=== PATIENT | female | born 1970 | race Caucasian/White ===

== ENCOUNTER → 2016-12-31 | Outpatient (CLI) | payer BC ==
--- NOTE | 2017-01-01 12:05 | MM ---
Reason for exam: screening (asymptomatic). Last mammogram was performed 2 years and 3 months ago. History: Patient is postmenopausal. Taking estrogen for 5 years beginning at age 38. Physical Findings: A clinical breast exam by your physician is recommended on an annual basis and results should be correlated with mammographic findings. MG Screening Mammo w CAD Bilateral CC and MLO view(s) were taken. Prior study comparison: October 10, 2014, bilateral MG screening mammo w CAD. The breast tissue is heterogeneously dense. This may lower the sensitivity of mammography. Finding: There is a 6 mm equal density (isodense), lobulated mass located 8 cm from the nipple in the upper quadrant, posterior position of the left breast. New finding since October 10, 2014. ASSESSMENT: Incomplete: need additional imaging evaluation, BI-RAD 0 RECOMMENDATION: Special view mammogram of the left breast. If lesion persists on supplemental views, image directed ultrasound is recommended. [facility] will attempt to contact patient to return for supplemental views and ultrasound if indicated.
== END | disposition home or self-care (01) ==
LOC: RADMAMWWP 09:43
PROVIDERS: ATTEND Internal Medicine
DX: Z12.31 Encounter for screening mammogram for malignant neoplasm of breast (principal)

== ENCOUNTER → 2017-01-05 | Outpatient (CLI) | payer BC ==
--- NOTE | 2017-01-05 08:27 | MM ---
Reason for exam: additional evaluation requested from abnormal screening. Last mammogram was performed less than 1 month ago. History: Patient is postmenopausal. Took estrogen beginning at age 38. Physical Findings: Nurse did not find any significant physical abnormalities on exam. MG 3D Work Up W/Cad LT Spot compression CC, spot compression MLO, and ML view(s) were taken of the left breast. Prior study comparison: December 31, 2016, bilateral MG screening mammo w CAD. October 10, 2014, bilateral MG screening mammo w CAD. A 5mm lesion does not completely go away on additional views. These results were verbally communicated with the patient and result sheet given to the patient on 01/05/17. ASSESSMENT: Incomplete: need additional imaging evaluation, BI-RAD 0 RECOMMENDATION: Ultrasound of the left breast.
--- NOTE | 2017-01-05 08:28 | USB ---
Reason for exam: additional evaluation requested from abnormal screening. History: Patient is postmenopausal. Took estrogen beginning at age 38. US Breast Workup Limited LT Left breast ultrasound demonstrates no cystic or solid lesion seen. These results were verbally communicated with the patient and result sheet given to the patient on 01/05/17. ASSESSMENT: Probably benign, BI-RAD 3 RECOMMENDATION: Follow-up diagnostic mammogram of the left breast in 6 months.
== END ==
LOC: RADMAMWWP 07:06
PROVIDERS: ATTEND Internal Medicine
DX: R92.8 Other abnormal and inconclusive findings on diagnostic imaging of breast (principal)
CPT/HCPCS: 76642; G0206; G0279

== ENCOUNTER → 2017-01-19 | Outpatient (CLI) | payer BC ==
--- NOTE | 2017-01-19 11:33 | WWHP ---
[facility] - HISTORY AND PHYSICAL DATE OF SERVICE: 01/19/2017 CHIEF COMPLAINT: The patient is here for her routine gynecologic exam. HPI: This is a 46-year-old G2, P0-1-1-1 with an LMP of 2009. She is status post CARIE/BSO for benign reasons. The patient does have occasional hot flashes, but they are not very bothersome and she is no longer on ERT. She is without gynecologic complaints. PAST MEDICAL HISTORY: Rheumatoid arthritis and anxiety. MEDICATIONS: Lexapro 10 mg daily, calcium with vitamin D, which she takes about 2 times per week. ALLERGIES: No known drug allergies. PAST SURGICAL HISTORY: in 1998, laparoscopy with adhesiolysis in 1997, CARIE BSO with removal of hemorrhagic subcutaneous nodule was done in 2009. 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 She has no history of STDs. SOCIAL HISTORY: She quit smoking in 2012 and has about 2 alcohol containing drinks per month. She denies drug use. 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 FAMILY HISTORY: Both parents had a CVA. Father also had type 2 diabetes. Mother also has bipolar disorder. Grandfather had lung cancer and a grandmother had pancreatic cancer. REVIEW OF SYSTEMS: She has gained about 3 pounds over the last year. She denies respiratory or cardiac problems. GI: Occasional heartburn. PHYSICAL EXAM: Blood pressure 127/88, height 5 feet 5 inches, weight 181 pounds, BMI 30. Temperature 98.1, pulse 78. This is a well-developed, heavyset white female, who is alert and oriented x3, in no acute distress. HEENT is within normal limits. NECK: Supple without mass or thyromegaly. CHEST AND LUNGS: Clear to auscultation. HEART: Regular rate and rhythm. Breasts are without mass or discharge. Axillary exam is negative for adenopathy. BACK: Negative for CVA tenderness. ABDOMEN: Soft, nontender, without palpable masses. PELVIC EXAM: External genitalia reveals mild atrophy without lesions. Vagina reveals mild atrophy without lesions. There is no evidence of prolapse. Bimanual exam is negative for mass or tenderness. Rectovaginal exam is negative for mass or tenderness and is negative for occult blood. EXTREMITIES: Nontender. IMPRESSION: 1. A 46-year-old menopausal female status post CARIE/BSO for benign reasons. 2. Normal gynecologic exam. PLAN: 1. Pap smears have been discontinued. 2. Self-breast examination was discussed. 3. She had a recent mammogram earlier this year and this was felt to be probably benign, but repeat left diagnostic mammogram was recommended in 6 months and an order slip was given to the patient for this. 4. Osteoporosis prevention was discussed. 5. Weight control was also discussed. We have discussed the importance of good nutrition, regular exercise, regular meals, and limited carbohydrates and limited fat in the diet. I have also suggested that she consider Weight Watchers if she needs a more structured program for this. 6. She will return in 1 year. MMSIMON / PABLO: [id number] /
== END | disposition home or self-care (01) ==
LOC: WWCWWP 09:18
PROVIDERS: ATTEND Obstetrics & Gynecology
DX: Z01.419 Encounter for gynecological examination (general) (routine) without abnormal findings (principal)

== ENCOUNTER → 2018-01-12 | Outpatient (CLI) | payer BC ==
[2018-01-12 07:37] LABS: Basophils % (A) 1 %; Eosinophils # (A) 0.1 k/uL (0-0.7); Eosinophils % (A) 3 %; HGB 14.8 gm/dL (11.4-16.0); Lymphocytes # (A) 1.5 k/uL (1.0-4.8); Lymphocytes % (A) 32 %; MCH 31.5 pg (25.0-35.0); MCHC 35.3 g/dL (31.0-37.0); MCV 89.1 fL (80.0-100.0); Mean Platelet Volume 6.8; Monocytes # (A) 0.2 k/uL (0-1.0); Monocytes % (A) 4 %; Neutrophils # (A) 2.8 k/uL (1.3-7.7); Neutrophils % (A) 59 %; Platelet Count 241 k/uL (150-450); RBC 4.71 m/uL (3.80-5.40); RDW 12.9 % (11.5-15.5); WBC 4.7 k/uL (3.8-10.6)
[2018-01-12 08:13] LABS: Appearance,Urine Clear (Clear); Bacteria,Urine Rare /hpf; Bilirubin,Urine Negative (Negative); Blood,Urine Negative (Negative); Color,Urine Yellow; Glucose,Urine (UA) Negative (Negative); Ketones,Urine Negative (Negative); Leukocyte Esterase,Urine Moderate (Negative); Mucus,Urine Rare /hpf; Nitrite,Urine Negative (Negative); Protein,Urine Negative (Negative); Specific Gravity,Urine 1.018 (1.001-1.035); Squamous Epithelial Cell,Urine 2 /hpf (0-4); Urobilinogen,Urine <2.0 mg/dL (<2.0); WBC,Urine 4 /hpf (0-5)
[2018-01-12 13:00] LABS: Albumin 4.5 g/dL (3.80-4.90); Albumin/Globulin Ratio 2.25 (1.20-2.10); Anion Gap 11.1 mmol/L (4.00-12.00); Calcium 9.3 mg/dL (8.7-10.3); Carbon Dioxide 23.9 mmol/L (21.6-31.8); LDL Cholesterol,Calculated 102.6 mg/dL (0.0-131.0); Potassium 3.9 mmol/L (3.5-5.5); Total Bilirubin 0.6 mg/dL (0.3-1.2); Total Protein 6.5 g/dL (6.2-8.2); Uric Acid 5.4 mg/dL (2.9-7.7); VLDL Calculation 15.4 mg/dL (5.00-40.00)
[2018-01-12 13:08] LABS: T4, Free (Free Thyroxine) 1.2 ng/dL (0.80-1.80)
[2018-01-12 16:18] LABS: Hemoglobin A1C 4.9 % (4.0-6.0)
== END | disposition home or self-care (01) ==
LOC: LABWHC1 07:03
PROVIDERS: ATTEND Internal Medicine
DX: Z00.00 Encounter for general adult medical examination without abnormal findings (principal); F41.9 Anxiety disorder, unspecified; I10 Essential (primary) hypertension; M79.7 Fibromyalgia
CPT/HCPCS: 36415; 80053; 80061; 81001; 82306; 82550; 83036; 83735; 84439; 84443; 84550; 85025

== ENCOUNTER → 2018-03-01 | Outpatient (CLI) | payer BC ==
[2018-03-01 08:05] VITALS: BP 153/97; PULSE 76; RESP 18; TEMP 98.5; BMI 32.2
--- NOTE | 2018-03-01 08:38 | P.HPOB ---
History of Present Illness H&P Date: 03/01/18 Chief Complaint: The patient is here for her routine gynecologic exam and mammogram. This is a 47-year-old with an LMP of 2009. The patient is status post CARIE BSO for benign reasons. The patient is without gynecologic complaints. Review of Systems The patient has gained 9 pounds over the last year. She denies respiratory, cardiac, or G.I. problems. 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 She is status post CARIE BSO for benign reasons. History of Any Multi-Drug Resistant Organisms: None Reported Past Surgical History: Section (1998), Hysterectomy (CARIE BSO 2009) Additional Past Surgical History / Comment(s): Laparoscopy with adhesive lysis 1997. Removal of hemorrhagic subcutaneous nodule at the time of her hysterectomy in 2009. 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 - Past Family History Father Family Medical History: CVA/TIA, Diabetes Mellitus Additional Family Medical History / Comment(s): Grandfather had lung cancer and a grandmother had pancreatic cancer. Mother Family Medical History: CVA/TIA Additional Family Medical History / Comment(s): Bipolar disorder. Medications and Allergies Home Medications Medication Instructions Recorded Confirmed Type Escitalopram [Lexapro] 10 mg PO DAILY 03/01/18 03/01/18 History Allergies Allergy/AdvReac Type Severity Reaction Status Date / Time No Known Allergies Allergy Verified 03/01/18 08:29 Exam Vital Signs Temp Pulse Resp BP 03/01/18 07:54 98.5 F 76 18 153/97 Intake and Output 02/28/18 03/01/18 03/01/18 22:59 06:59 14:59 Other: Weight 85.275 kg Height 5'4", weight 188 pounds, BMI 32.3. This is a well-developed well-nourished white female who is alert and oriented times 3 in no acute distress. HEENT: Within normal limits. NECK: Supple without mass or thyromegaly. CHEST AND LUNGS: Clear to auscultation. HEART: Regular rate and rhythm. BREASTS: Are without mass or discharge. AXILLARY EXAM: Negative for adenopathy. BACK: Negative for CVA tenderness. ABDOMEN: Soft, nontender, without palpable masses. PELVIC EXAM: External genitalia appears normal. Vagina appears normal with minimal atrophy. There is no evidence of prolapse. Bimanual examination is negative for mass or tenderness. RECTAL EXAM: Rectovaginal exam is negative for mass or tenderness and is negative for occult blood. EXTREMITIES: Nontender. IMPRESSION: 1. 47-year-old menopausal female who is status post CARIE BSO done for benign reasons with normal gynecologic exam. 2. Elevated blood pressure. PLAN: 1. Pap smears have been discontinued. 2. Self breast awareness was discussed with the patient. 3. Screening mammogram will be done today. 4. Osteoporosis prevention was discussed. I have stressed the importance of adequate calcium, vitamin D and regular exercise. Recommended amounts of calcium and vitamin D were also discussed. 5. A message was left on the patient's voicemail regarding her elevated blood pressure in the office today. I have asked her to check your blood pressure on a regular basis and follow-up with Dr. Morgan for blood pressure elevations. 6. She will return in one year.
--- NOTE | 2018-03-06 12:23 | MM ---
Reason for exam: screening (asymptomatic). Last mammogram was performed 1 year and 2 months ago. History: Patient is postmenopausal. Took estrogen beginning at age 38. MG 3D Screening Mammo W/Cad Bilateral CC and MLO view(s) were taken. Prior study comparison: January 05, 2017, left breast MG 3d work up w/cad LT. December 31, 2016, bilateral MG screening mammo w CAD. The breast tissue is heterogeneously dense. This may lower the sensitivity of mammography. No discrete abnormality. ASSESSMENT: Negative, BI-RAD 1 RECOMMENDATION: Routine screening mammogram of both breasts in 1 year.
== END | disposition home or self-care (01) ==
LOC: WWCWWP 07:50
PROVIDERS: ATTEND Obstetrics & Gynecology
DX: Z12.31 Encounter for screening mammogram for malignant neoplasm of breast (principal)
CPT/HCPCS: 77063; 77067

== ENCOUNTER → 2020-08-22 | Outpatient (CLI) | payer BC ==
--- NOTE | 2020-08-22 16:56 | XR ---
EXAMINATION TYPE: XR ankle complete RT DATE OF EXAM: 08/22/2020 COMPARISON: NONE HISTORY: 49-year-old female M2 5.571 TECHNIQUE: 3 views FINDINGS: Ankle mortise is congruent with preservation of the distal tibiofibular overlap. Talar dome is intact . No acute fracture, subluxation, or dislocation. Mild soft tissue swelling. IMPRESSION: Mild soft tissue swelling. No acute osseous abnormality seen.
== END | disposition home or self-care (01) ==
LOC: RADXRMAIN 15:40
PROVIDERS: ATTEND Internal Medicine
DX: M79.89 Other specified soft tissue disorders (principal)

== ENCOUNTER → 2020-08-22 | Outpatient (CLI) | payer BC ==
--- NOTE | 2020-08-23 10:07 | MM ---
Reason for exam: clinical finding. Last mammogram was performed 2 years and 6 months ago. History: Patient is postmenopausal. Took estrogen beginning at age 38. Physical Findings: Nurse did not find any significant physical abnormalities on exam. MG 3D Diag Mammo W/Cad RAJWINDER Bilateral CC and MLO view(s) were taken. Prior study comparison: March 01, 2018, bilateral MG 3d screening mammo w/cad. January 05, 2017, left breast MG 3d work up w/cad LT. The breast tissue is heterogeneously dense. This may lower the sensitivity of mammography. No significant new findings when compared with previous films. These results were verbally communicated with the patient and result sheet given to the patient on 08/22/20. ASSESSMENT: Incomplete: need additional imaging evaluation, BI-RAD 0 RECOMMENDATION: Ultrasound of the left breast. (axillary lump)
--- NOTE | 2020-08-23 10:08 | USB ---
Reason for exam: additional evaluation requested from abnormal screening. History: Patient is postmenopausal. Took estrogen beginning at age 38. US Breast Axilla LT Left limited breast ultrasound including focal area of concern, retroareolar and axilla demonstrates no sonographic finding at palpable lump. Fatty tissue left axilla, 9mm reactive lymph node, benign appearing. These results were verbally communicated with the patient and result sheet given to the patient on 08/22/20. ASSESSMENT: Benign, BI-RAD 2 RECOMMENDATION: Routine screening mammogram of both breasts in 1 year.
== END | disposition home or self-care (01) ==
LOC: RADMAMWWP 14:09
PROVIDERS: ATTEND Internal Medicine
DX: R92.8 Other abnormal and inconclusive findings on diagnostic imaging of breast (principal); R59.0 Localized enlarged lymph nodes
CPT/HCPCS: 77062; 77066

== ENCOUNTER → 2022-11-03 | Outpatient (CLI) | payer BC ==
--- NOTE | 2022-11-03 18:42 | BD ---
EXAMINATION TYPE: Axial Bone Density DATE OF EXAM: 11/03/2022 CLINICAL HISTORY: 51 years old Female. ICD-10 CODE: [id number] OSTEO Height: 64 Weight: 152.3 FRAX RISK QUESTIONS: Alcohol (3 or more units per day): no Family History (Parent hip fracture): no Glucocorticoids (More than 3mos): no (Ex: prednisone, prednisolone, methylprednisolone, dexamethasone, and hydrocortisone). History of Fracture in Adulthood: no Secondary Osteoporosis: 1. Type 1 Diabetes: no 2. Hyperthyroidism: no 3. Menopause before 45: yes 4. Malnutrition: no 5. Chronic liver disease: no Rheumatoid Arthritis: no Current Tobacco Use: no RISK FACTORS HISTORY OF: Surgery to Spine/Hip(right/left)/Wrist (right/left): no Family History of Osteoporosis: yes Active: yes Diet low in dairy products/other sources of calcium: yes Postmenopausal woman: yes Take estrogen and/or progesterone medications: no Lost more than 2 inches in height since high school: no MEDICATIONS: Additional History: EXAM MEASUREMENTS: Bone mineral densitometry was performed using the [employer] System. Bone mineral density as measured about the Lumbar spine is: ----- L1-L4(G/cm2): 0.944 T Score Values are as follows: ----- L1: -1.6 ----- L2: -2.0 ----- L3: -1.1 ----- L4: -1.6 ----- L1-L4: -1.5 Z Score Values are as follows: ----- L1: -1.1 ----- L2: -1.6 ----- L3: -0.6 ----- L4: -1.1 ----- L1-L4: -1.1 Bone mineral density : baseline Bone mineral density about the R hip (g/cm2): 0.857 Bone mineral density about the L hip (g/cm2): 0.802 T Score values are as follows: -----R Neck: -1.4 -----L Neck: -1.7 -----R Total: -1.2 -----L Total: -1.6 Z Score values are as follows: -----R Neck: -0.6 -----L Neck: -0.9 -----R Total: -0.7 -----L Total: -1.2 Bone mineral density : baseline FRAX%s: The graph provided illustrates a 6.3% chance for a major osteoporotic fx and a 0.6% chance fo r the hips probability for fx in 10 years time. IMPRESSION: Osteopenia (T Score between -2.5 and -1). There is slightly increased risk of fracture and the patient may be considered for treatment. Re-Screen 2-5 years. NOTE: T-SCORE=SD OF THE YOUNG ADULT MEAN.
--- NOTE | 2022-11-04 09:17 | MM ---
Reason for Exam: Screening (asymptomatic). Last mammogram was performed 2 year(s) and 2 month(s) ago. Patient History: Menarche at age 10. Left ovary removed at age 38. Right ovary removed at age 38. Hysterectomy at age 38. Postmenopausal. Estrogen, from age 38 until age 44. Risk Values: Domitila 5 year model risk: 0.8%. NCI Lifetime model risk: 6.9%. Prior Study Comparison: 01/05/2017 Left Diagnostic Mammogram, [facility]. 03/01/2018 Bilateral Screening Mammogram, [facility]. 08/22/2020 Bilateral Diagnostic Mammogram, [facility]. Tissue Density: The breast tissue is heterogeneously dense. This may lower the sensitivity of mammography. Findings: Analyzed By CAD. There is no suspicious group of microcalcifications or new suspicious mass. Overall Assessment: Negative, BI-RAD 1 Management: Screening Mammogram of both breasts in [address] [facility] will attempt to contact patient to return for supplemental views and ultrasound if indicated. Patient should continue monthly self-breast exams. A clinical breast exam by your physician is recommended on an annual basis. This exam should not preclude additional follow-up of suspicious palpable abnormalities. Note on Domitila scores and lifetime risk: 1. A Domitila score greater than 3% is considered moderate risk. If this is the case, consider specialist referral to assess eligibility for a risk reducing agent. 2. If overall lifetime risk for the development of breast cancer is 20% or higher, the patient may qualify for future screening with alternating mammogram and breast MRI. Electronically signed and approved by: Bam Llanos DO
== END | disposition home or self-care (01) ==
LOC: RADBDWWP 07:08
PROVIDERS: ATTEND Internal Medicine
DX: Z12.31 Encounter for screening mammogram for malignant neoplasm of breast (principal); M85.89 Other specified disorders of bone density and structure, multiple sites; Z78.0 Asymptomatic menopausal state
CPT/HCPCS: 77063; 77067; 77080